=== PATIENT | female | born 1925 | race Caucasian/White ===

== ENCOUNTER 2016-11-08 11:46 | Inpatient (IN) | payer OTHER ==
[~2016-11-08] VITALS: Ht 167.6 cm; Wt 86.2 kg
[2016-11-08 13:22] LABS: Basophils # (auto) 0 uL; Basophils % (auto) 0.3 % (0.0-2.0); DEFINITIVE VIEW TRANSMISSION; Eosinophils # (auto) 0.1 uL; Eosinophils % (auto) 1.1 % (0.0-7.0); Hematocrit 44.5 % (36.0-46.0); Hemoglobin 14.3 g/dL (12.2-16.2); Lymphocytes # (auto) 1.3 uL; Lymphocytes % (auto) 15.5 % (10.0-50.0); Mean Corpuscular Hgb Conc. 32.2 g/dL (32.0-36.0); Mean Corpuscular Volume 80.7 fL (80.0-100.0); Mean Platelet Volume 7.7 fL (7.4-10.4); Monocytes # (auto) 0.5 uL; Neutrophils # (auto) 6.6 uL; Neutrophils % (auto) 77.1 % (37.0-80.0); Platelet Count (auto) 281 10^3/uL (140-450); Red Cell Distribution Width 14.8 % (11.6-16.0); White Blood Cell 8.6 10^3/uL (4.4-10.8)
[2016-11-08 13:38] LABS: INR 1.07 (0.9-1.15); Partial Thromboplastin Time 24.1 sec (22.64-33.71)
[2016-11-08 13:42] LABS: Albumin 3.5 g/dL (3.4-5.0); BUN/Creatinine Ratio 20.2; Potassium 4.3 mmol/L (3.5-5.1)
[2016-11-08 13:45] LABS: Bilirubin, Total 0.4 mg/dL (0.2-1.0); Total Protein 6.8 g/dL (6.4-8.2)
[2016-11-08 13:50] LABS: Magnesium 2.5 mg/dL (1.6-2.6)
[2016-11-08] MEDS ORDERED: ACETAMINOPHEN 500 MG TAB PO PRN (17:00)
[2016-11-08] MEDS ORDERED: MORPHINE SULF INJ 2 MG/ML SYRINGE 1ML IV PRN ×2 (17:00)
[2016-11-08] MEDS ORDERED: HYDROcodone-ACET 5/325MG TAB PO PRN (17:00)
[2016-11-08] MEDS ORDERED: TEMAZEPAM 15 MG CAP PO PRN (17:00)
[2016-11-08] MEDS ORDERED: ONDANSETRON HCL 4 MG/2 ML VIAL IV PRN (17:00)
[2016-11-08] MEDS ORDERED: NITROGLYCERIN 0.4 MG SL TAB SL PRN (17:00)
[2016-11-08] MEDS ORDERED: LORazepam 0.5 MG TAB PO PRN (17:00)
[2016-11-08] MEDS ORDERED: ENOXAPARIN SOD 40 MG/0.4 ML SYRINGE SC SCH (17:03)
[2016-11-08] MEDS ORDERED: VITA100T3 PO (17:21)
[2016-11-08] MEDS ORDERED: FURO10SO PO (17:21)
[2016-11-08] MEDS ORDERED: PRENTAB76 PO (17:21)
[2016-11-08] MEDS ORDERED: POTA-167 PO (17:21)
[2016-11-08] MEDS ORDERED: CLOP75TA41 PO (17:21)
[2016-11-08] MEDS ORDERED: ATOR10TA52 PO (17:21)
[2016-11-08] MEDS ORDERED: CHOL20009 PO (17:21)
[2016-11-08] MEDS ORDERED: CARV3.1240 PO (17:21)
[2016-11-08] MEDS: SODIUM CHLORIDE 0.9% 1,000 ML IV SCH (18:19)
[2016-11-08 21:00] VITALS: BP 152/100
[2016-11-09] MEDS: SODIUM CHLORIDE 0.9% 1,000 ML IV SCH (05:19)
[2016-11-09 05:46] VITALS: BP 134/74
[2016-11-09] MEDS ORDERED: CYANOCOBALAMIN (B-12) 1000 MCG/1 ML VIAL SUBCUT ONE (08:00)
[2016-11-09 09:00] VITALS: BP 106/58
[2016-11-09] MEDS ORDERED: ASPirin 81 mg TAB PO SCH (10:00)
[2016-11-09 12:43] VITALS: BP 134/77
[2016-11-09] MEDS ORDERED: LORazepam 2MG/ML-1ML VIAL IV ONE (13:15)
[2016-11-09 17:00] VITALS: BP_SYST 140; BP_SYST 150; BP_DIAS 80; BP_DIAS 83
== END 2016-11-09 18:50 | disposition home health service (06) | DRG 307 ==
LOC: ER 11:56 → TELE-WESTW 11:57
PROVIDERS: ADMIT Internal Medicine; ATTEND Family Medicine
DX: I35.0 Nonrheumatic aortic (valve) stenosis (principal); G45.9 Transient cerebral ischemic attack, unspecified; I95.9 Hypotension, unspecified; E78.5 Hyperlipidemia, unspecified; F03.90 Unspecified dementia, unspecified severity, without behavioral disturbance, psychotic disturbance, mood disturbance, and anxiety; I10 Essential (primary) hypertension; Z87.891 Personal history of nicotine dependence; Z90.49 Acquired absence of other specified parts of digestive tract; Z90.710 Acquired absence of both cervix and uterus; Z79.82 Long term (current) use of aspirin
CPT/HCPCS: 36415; 70450; 70551; 71010; 80053; 80320; 82550; 82607; 82962; 83735; 84443; 84484; 85025; 85610; 85730; 93005; 93306; 94761; 96372; 97001